=== PATIENT | female | born 1955 | race Caucasian/White ===

== ENCOUNTER 2020-10-09 12:27 | Emergency (ER) | payer OTHER ==
[~2020-10-09] VITALS: Ht 162.6 cm; Wt 104.3 kg
[2020-10-09 12:37] VITALS: BP 139/102
[2020-10-09 13:09] LABS: BASOPHILS % (AUTO) 0.8 % (0.0-5.0); EOSINOPHILS % (AUTO) 2.8 % (0.0-8.0); LYMPHOCYTES % (AUTO) 13.5 % (21.0-51.0); MEAN CORPUSCULAR HEMOGLOBIN 29.7 pg (27.0-33.0); MEAN CORPUSCULAR HGB CONC 32.1 g/dL (32.0-36.0); MEAN CORPUSCULAR VOLUME 92.7 fL (79-99); MONOCYTES % (AUTO) 7.8 % (3.0-13.0); NEUTROPHILS % (AUTO) 74.7 % (40.0-77.0); PLATELET COUNT (AUTO) 195 K/uL (130-400); RED BLOOD CELL COUNT(AUTO) 5.18 MIL/uL (4.00-5.50); RED CELL DISTRIBUTION WIDTH 13.5 % (11.0-15.5); WHITE BLOOD COUNT (AUTO) 8.5 K/uL (4.8-10.8)
[2020-10-09 13:17] LABS: CREATININE 1.3 mg/dL (0.5-1.5); POTASSIUM 4.1 mmol/L (3.5-5.1)
[2020-10-09 13:22] LABS: ALBUMIN 3.5 g/dL (3.5-5.0); BILIRUBIN,TOTAL 0.7 mg/dL (0.2-1.0); TOTAL PROTEIN, SERUM 7.6 g/dL (6.0-8.3)
[2020-10-09 13:29] LABS: B-TYPE NATRIURETIC PEPTIDE 175 pg/mL (0-100)
[2020-10-09 15:37] VITALS: BP 131/92
[2020-10-09] MEDS ORDERED: SUCRALFATE 1 GM TABLET PO SCH (15:45)
[2020-10-09] MEDS ORDERED: FAMOTIDINE/PF 20 MG/2 ML VIAL IV ONE ×2 (15:45→16:55)
[2020-10-09 16:00] VITALS: BP 146/60
[2020-10-09] MEDS ORDERED: METOPROLOL TARTRATE 1 MG/ML 5ML VIAL IV ONE (16:30)
[2020-10-09 17:10] VITALS: BP 152/71
[2020-10-09 18:25] VITALS: BP 126/68
== END 2020-10-09 15:15 | disposition left against medical advice (07) ==
LOC: EDH 12:27
DX: I48.91 Unspecified atrial fibrillation (principal); R10.13 Epigastric pain; R11.2 Nausea with vomiting, unspecified; I10 Essential (primary) hypertension; E66.9 Obesity, unspecified; Z79.899 Other long term (current) drug therapy; Z79.01 Long term (current) use of anticoagulants; Z88.0 Allergy status to penicillin; Z88.1 Allergy status to other antibiotic agents; Z87.19 Personal history of other diseases of the digestive system; Z88.8 Allergy status to other drugs, medicaments and biological substances
CPT/HCPCS: 36415; 71045; 80053; 82550; 83690; 83735; 83880; 84484 ×2; 85025; 93005 ×3; 96374; 96375; 99285; J3490 ×2

== ENCOUNTER → 2020-11-08 | Outpatient (CLI) | payer OTHER | END | disposition home or self-care (01) | LOC: RAH 10:52 | PROVIDERS: ATTEND Internal Medicine | DX: R31.9 Hematuria, unspecified (principal) | CPT/HCPCS: 76770 ==

== ENCOUNTER 2020-12-07 08:33 | Day surgery (SDC) | payer OTHER ==
[2020-12-02 12:08] LABS: BASOPHILS % (AUTO) 1.1 % (0.0-5.0); EOSINOPHILS % (AUTO) 2.5 % (0.0-8.0); HEMATOCRIT 43.4 % (36-48); LYMPHOCYTES % (AUTO) 14.2 % (21.0-51.0); MEAN CORPUSCULAR HEMOGLOBIN 29.8 pg (27.0-33.0); MEAN CORPUSCULAR HGB CONC 30.9 g/dL (32.0-36.0); MEAN CORPUSCULAR VOLUME 96.7 fL (79-99); MONOCYTES % (AUTO) 6.8 % (3.0-13.0); NEUTROPHILS % (AUTO) 75.1 % (40.0-77.0); PLATELET COUNT (AUTO) 168 K/uL (130-400); RED BLOOD CELL COUNT(AUTO) 4.49 MIL/uL (4.00-5.50); RED CELL DISTRIBUTION WIDTH 14.6 % (11.0-15.5); WHITE BLOOD COUNT (AUTO) 7.5 K/uL (4.8-10.8)
[2020-12-02 12:15] LABS: CREATININE 1.4 mg/dL (0.5-1.5); POTASSIUM 4.8 mmol/L (3.5-5.1)
[2020-12-02 12:18] LABS: INR 1.11 (0.85-1.15)
[2020-12-02 12:19] LABS: PARTIAL THROMBOPLASTIN TIME 31.4 SEC (26.3-35.5)
[2020-12-06 12:57] VITALS: BP 127/69
[~2020-12-07] VITALS: Ht 162.6 cm; Wt 108.7 kg
[2020-12-07] VITALS (11 sets, daily range): BP systolic 94–138; BP diastolic 47–82
[~2020-12-07 08:33] MED LIST: APIX5TAB PO; DRON400T7 PO; FURO40TA5 PO; METO-391 PO
[2020-12-07] MEDS ORDERED: 0.9%NACL 1000ML 1,000 ML IV ONE (09:29)
[2020-12-07] MEDS ORDERED: SUCCINYLCHOLINE 200MG/10ML SYR ONE (12:14)
[2020-12-07] MEDS ORDERED: PROPOFOL 10 MG/ML 20ML VIAL IV ONE (12:14)
== END 2020-12-07 13:30 | disposition home or self-care (01) ==
LOC: DAH 08:33
PROVIDERS: ATTEND Internal Medicine Cardiovascular Disease
DX: I48.19 Other persistent atrial fibrillation (principal); Z20.822 Contact with and (suspected) exposure to COVID-19; E66.01 Morbid (severe) obesity due to excess calories; E11.9 Type 2 diabetes mellitus without complications; G47.00 Insomnia, unspecified; Z79.82 Long term (current) use of aspirin; Z79.01 Long term (current) use of anticoagulants; Z79.899 Other long term (current) drug therapy; Z90.89 Acquired absence of other organs; Z82.49 Family history of ischemic heart disease and other diseases of the circulatory system; Z88.0 Allergy status to penicillin; Z88.8 Allergy status to other drugs, medicaments and biological substances; Z68.41 Body mass index [BMI] 40.0-44.9, adult; Z72.89 Other problems related to lifestyle
CPT/HCPCS: 36415; 80048; 85025; 85610; 85730; 87635; 92960; 93005 ×2; A4215; A4216; A4221; A4222; A4223 ×2; A4606; A4663; C9803; J0330; J2704; J7030

== ENCOUNTER 2021-08-30 05:41 | Day surgery (SDC) | payer OTHER ==
[2021-08-29 14:11] LABS: BASOPHILS % (AUTO) 0.8 % (0.0-5.0); HEMATOCRIT 46.1 % (36-48); LYMPHOCYTES % (AUTO) 15.8 % (21.0-51.0); MEAN CORPUSCULAR HEMOGLOBIN 28.6 pg (27.0-33.0); MEAN CORPUSCULAR HGB CONC 31.5 g/dL (32.0-36.0); MEAN CORPUSCULAR VOLUME 90.9 fL (79-99); MONOCYTES % (AUTO) 10.2 % (3.0-13.0); NEUTROPHILS % (AUTO) 70.7 % (40.0-77.0); PLATELET COUNT (AUTO) 147 K/uL (130-400); RED BLOOD CELL COUNT(AUTO) 5.07 MIL/uL (4.00-5.50); RED CELL DISTRIBUTION WIDTH 13.6 % (11.0-15.5); WHITE BLOOD COUNT (AUTO) 5.9 K/uL (4.8-10.8)
[2021-08-29 14:17] LABS: CREATININE 1.2 mg/dL (0.5-1.5); POTASSIUM 4.5 mmol/L (3.5-5.1)
[2021-08-29 14:28] VITALS: BP 165/74
[2021-08-29 14:34] LABS: INR 1.13 (0.85-1.15); PROTHROMBIN TIME 12.2 SEC (9.6-11.6)
[2021-08-29 14:36] LABS: PARTIAL THROMBOPLASTIN TIME 34.5 SEC (26.3-35.5)
[~2021-08-30] VITALS: Ht 162.6 cm; Wt 110.9 kg
[2021-08-30] VITALS (11 sets, daily range): BP systolic 100–168; BP diastolic 42–92
[~2021-08-30 05:41] MED LIST changes: +BUPR-93 PO; +DEXL60CA3 PO; +DILT180C89 PO; -METO-391 PO
[2021-08-30] MEDS ORDERED: 0.9% NACL 500ML IV.SOLN 500 ML IV SCH (06:00)
[2021-08-30] MEDS ORDERED: 0.9%NACL 1000ML 1,000 ML IV ONE (06:05)
[2021-08-30] MEDS ORDERED: PROPOFOL 10 MG/ML 20ML VIAL IV ONE (07:55)
== END 2021-08-30 09:03 | disposition home or self-care (01) ==
LOC: DAH 05:41
PROVIDERS: ATTEND Internal Medicine Cardiovascular Disease
DX: I48.19 Other persistent atrial fibrillation (principal); E66.01 Morbid (severe) obesity due to excess calories; E66.9 Obesity, unspecified; F32.A Depression, unspecified; Z79.899 Other long term (current) drug therapy; Z90.89 Acquired absence of other organs; Z82.49 Family history of ischemic heart disease and other diseases of the circulatory system; Z72.89 Other problems related to lifestyle; Z88.8 Allergy status to other drugs, medicaments and biological substances; Z88.0 Allergy status to penicillin; Z68.41 Body mass index [BMI] 40.0-44.9, adult; Z79.01 Long term (current) use of anticoagulants
CPT/HCPCS: 36415; 80048; 85025; 85610; 85730; 87635; 92960; 93005 ×2; A4215; A4216; A4221; A4222; A4223 ×3; A4606; A4663; A7002; C9803; J2704; J7030

== ENCOUNTER 2021-12-19 08:33 | Observation (INO) | payer OTHER ==
[~2021-12-19] VITALS: Ht 162.6 cm; Wt 113.9 kg
[2021-12-19] MEDS: APIXABAN 5 MG TABLET PO SCH ×2 (09:00→21:42)
[2021-12-19] MEDS ORDERED: SOTALOL HCL 80 MG TABLET PO SCH (09:00)
[2021-12-19 09:17] LABS: BASOPHILS % (AUTO) 1.2 % (0.0-5.0); HEMATOCRIT 44.6 % (36-48); LYMPHOCYTES % (AUTO) 21.4 % (21.0-51.0); MEAN CORPUSCULAR HEMOGLOBIN 28.7 pg (27.0-33.0); MEAN CORPUSCULAR HGB CONC 31.8 g/dL (32.0-36.0); MEAN CORPUSCULAR VOLUME 90.3 fL (79-99); MONOCYTES % (AUTO) 7.8 % (3.0-13.0); NEUTROPHILS % (AUTO) 64.4 % (40.0-77.0); PLATELET COUNT (AUTO) 145 K/uL (130-400); RED BLOOD CELL COUNT(AUTO) 4.94 MIL/uL (4.00-5.50); RED CELL DISTRIBUTION WIDTH 14.4 % (11.0-15.5); WHITE BLOOD COUNT (AUTO) 5.2 K/uL (4.8-10.8)
[2021-12-19 09:40] LABS: ALBUMIN 3.4 g/dL (3.5-5.0); CREATININE 1.4 mg/dL (0.5-1.5); MAGNESIUM 2.1 mg/dL (1.80-2.40); POTASSIUM 3.5 mmol/L (3.5-5.1); T4 (THYROXINE) 6.7 ug/dL (4.7-13.3); THYROID STIMULATING HORMONE 3.82 uIU/mL (0.36-3.74); TOTAL PROTEIN, SERUM 6.9 g/dL (6.0-8.3)
[2021-12-19] MEDS ORDERED: BUPR75TA8 PO (09:48)
[2021-12-19] MEDS ORDERED: DILT-36 PO (09:48)
[2021-12-19] MEDS ORDERED: [UNRECOGNIZED DRUG - CODE] PO (09:48)
[2021-12-19 10:00] VITALS: BP 162/58
[2021-12-19] MEDS: SOTALOL HCL 80 MG TABLET PO SCH ×2 (11:26→21:40)
[2021-12-19 11:42] VITALS: BP 164/94
[2021-12-19 14:18] VITALS: BP 125/65
[2021-12-19 16:07] VITALS: BP 124/59
[2021-12-19 20:52] VITALS: BP 124/57
[2021-12-19 23:44] VITALS: BP 118/68
[2021-12-20 04:20] VITALS: BP 121/53
[2021-12-20 06:44] VITALS: BP 124/75
[2021-12-20] MEDS: SOTALOL HCL 80 MG TABLET PO SCH (08:35)
[2021-12-20] MEDS: APIXABAN 5 MG TABLET PO SCH (08:36)
[2021-12-20 11:26] VITALS: BP 134/65
[2021-12-20] MEDS ORDERED: SOTA120T PO (14:09)
== END 2021-12-20 15:42 | disposition home or self-care (01) ==
LOC: EDH 08:33 → EDHIP 08:34 → 2BH 09:28 → 2AH 15:07
PROVIDERS: ADMIT Internal Medicine Cardiovascular Disease; ATTEND Internal Medicine Cardiovascular Disease
DX: I48.19 Other persistent atrial fibrillation (principal); Z79.899 Other long term (current) drug therapy
CPT/HCPCS: 84443; 84436; 83735; 80053; 85025; 36415; 93005; G0378 ×31; G0379

== ENCOUNTER → 2022-01-23 | Outpatient (CLI) | payer OTHER ==
[~2022-01-23] MED LIST changes: -BUPR-93 PO; +BUPR75TA8 PO; -DEXL60CA3 PO; -DILT180C89 PO; -DRON400T7 PO; -FURO40TA5 PO; +SOTA120T PO; +[UNRECOGNIZED DRUG - CODE] PO
== END | disposition home or self-care (01) ==
LOC: SHCH 14:03
PROVIDERS: ATTEND Internal Medicine Cardiovascular Disease
DX: I51.7 Cardiomegaly (principal); I48.0 Paroxysmal atrial fibrillation; E66.01 Morbid (severe) obesity due to excess calories; Z98.890 Other specified postprocedural states
CPT/HCPCS: 93306

== ENCOUNTER 2024-05-08 08:22 | Day surgery (SDC) | payer OTHER ==
[2024-05-02 10:32] VITALS: BP 146/80; PULSE 104; RESP 16; TEMP 97.5
[2024-05-02 10:37] LABS: BASOPHILS # (AUTO) 0.05 K/uL (0.00-0.20); BASOPHILS % (AUTO) 0.8 % (0.0-5.0); EOSINOPHILS # (AUTO) 0.17 K/uL (0.00-0.70); EOSINOPHILS % (AUTO) 2.7 % (0.0-8.0); HEMATOCRIT 48.2 % (36-48); IMMATURE GRANULOCYTE ABSOLUTE 0.01 K/uL (0-1); LYMPHOCYTES % (AUTO) 16.3 % (21.0-51.0); MEAN CORPUSCULAR HEMOGLOBIN 29.2 pg (27.0-33.0); MEAN CORPUSCULAR VOLUME 91.3 fL (79-99); MONOCYTES # (AUTO) 0.5 K/uL (0.1-1.0); MONOCYTES % (AUTO) 8.4 % (3.0-13.0); NEUTROPHILS # (AUTO) 4.4 K/uL (1.8-7.7); NEUTROPHILS % (AUTO) 71.6 % (40.0-77.0); PLATELET COUNT (AUTO) 174 K/uL (130-400); RED BLOOD CELL COUNT(AUTO) 5.28 MIL/uL (4.00-5.50); RED CELL DISTRIBUTION WIDTH 14.9 % (11.0-15.5); WHITE BLOOD COUNT (AUTO) 6.2 K/uL (4.8-10.8)
--- NOTE | 2024-05-02 10:37 | EKG ---
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 : 1955 Requested By: ROSANNA SANCHEZ Order Number: [id number] Reading MD: Leonel Harrsi Measurements Intervals [place] Rate: 92 P: 0 CO: 0 QRS: 0 QRSD: 79 T: 0 QT: 362 QTc: 447 Interpretive Statements Atrial fibrillation Indeterminate axis Consider anterior infarct Nonspecific T abnormalities, inferior leads Compared to ECG 12/20/2021 13:41:54 Indeterminate axis now present Myocardial infarct finding now present T-wave abnormality now present Sinus bradycardia no longer present Electronically Signed On 05-02-2024 12:25:34 [employer] TE[employer]ERS by Leonel Harris Please click the below link to view image of tracing.
[2024-05-02 10:48] LABS: INR 1.06 (0.85-1.15); PROTHROMBIN TIME 11.8 SEC (9.6-11.6)
[2024-05-02 10:50] LABS: PARTIAL THROMBOPLASTIN TIME 33.4 SEC (26.3-35.5)
[2024-05-02 10:59] LABS: CREATININE 1.3 mg/dL (0.5-1.0); POTASSIUM 4.5 mmol/L (3.5-5.1)
[2024-05-08] VITALS (19 sets, daily range): BP systolic 102–139; BP diastolic 41–86; PULSE 61–96; RESP 13–20; TEMP 97–97.8
[~2024-05-08] VITALS: Ht 162.6 cm; Wt 117.3 kg
[~2024-05-08 08:22] MED LIST changes: -BUPR75TA8 PO; +DILT240C81 PO; +METO25 PO; +SEMA1PEN3 SQ; -SOTA120T PO; -[UNRECOGNIZED DRUG - CODE] PO
[2024-05-08] MEDS: 0.9%NACL 1000ML 1,000 ML IV ONE (09:41)
[2024-05-08] MEDS: 0.9%NACL 1000ML 1,000 ML IV SCH (09:42)
[2024-05-08] MEDS ORDERED: SUCCINYLCHOLINE CHLORIDE 20 MG/ML 10 ML VIAL ONE (11:16)
[2024-05-08] MEDS ORDERED: LIDOCAINE PF 100MG/5ML (2%) SYRINGE 5ML ONE (11:16)
[2024-05-08] MEDS ORDERED: MIDAZOLAM HCL 1 MG/ML 2ML VIAL ONE (11:17)
[2024-05-08] MEDS ORDERED: proPOFol 10 MG/ML 20ML VIAL IV ONE (11:17)
[2024-05-08] MEDS ORDERED: rocuRONium bROMide 10MG/1ML 5ML VL ONE (11:17)
[2024-05-08] MEDS ORDERED: ketaMINE 50MG/ML SYRINGE 50 MG/ML DISP.SYRIN ONE (11:17)
[2024-05-08] MEDS ORDERED: GLYCOPYRROLATE 0.2 MG/ML 5 ML VIAL ONE (11:18)
[2024-05-08] MEDS ORDERED: phenylEPHRINE HCL 10 MG/ML 1ML VIAL IV ONE ×2 (11:19→14:25)
[2024-05-08] MEDS ORDERED: NEOSTIGMINE METHYLSULFATE 1MG/ML IV ONE (11:19)
[2024-05-08] MEDS ORDERED: LIDOCAINE HCL 1% MDV 50ML VIAL ONE (11:28)
[2024-05-08] MEDS ORDERED: HEParin 10,000 UNIT/10ML (1,000 UNIT/ML) VIAL ONE ×2 (11:28→12:42)
[2024-05-08] MEDS ORDERED: PANTOPrazole 40 MG TAB DR PO SCH (15:30)
[2024-05-08] MEDS ORDERED: SUCRALFATE 1 GM/10 ML PO SCH (15:30)
[2024-05-08] MEDS: ondanSETRON 4MG INJ ONE (15:36)
[2024-05-08] MEDS ORDERED: DRON400T7 PO ×2 (15:38)
[2024-05-08] MEDS ORDERED: DRONEDARONE HYDROCHLORIDE 400 MG TABLET PO SCH (16:30)
--- NOTE | 2024-05-08 18:15 | NUR ---
Son to bedside for D/C instructions, pt/son verbalize understanding. Rt groin stable, nontender, dressing changes explained, 2 sutures remain, supplies given. script transmitted for Multaq, son confirms fillled at [facility]. Pt sitting up on bedside, groin & VSS, denies c/o or necessity. Pednign PIV removal s/p ambulation to restroom. Assist dress. Plan D/C via W/C into son's car & car.
[2024-05-09] MEDS ORDERED: DRON400T7 PO ×2 (05:22)
[2024-05-09] MEDS ORDERED: METO25TA6 PO ×2 (05:22)
[2024-05-09] MEDS ORDERED: DILT-118 PO ×2 (05:22)
--- NOTE | 2024-05-09 06:21 | EKG ---
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 : 1955 Requested By: ROSANNA SANCHEZ Order Number: [id number] Reading MD: Gene Lindo Measurements Intervals [place] Rate: 72 P: 64 ND: 160 QRS: 10 QRSD: 74 T: 39 QT: 419 QTc: 454 Interpretive Statements Sinus rhythm Multiple premature complexes, vent & supraven Nonspecific STT abnormality Compared to ECG 05/02/2024 11:17:37 Atrial fibrillation no longer present Indeterminate axis no longer present Myocardial infarct finding no longer present T-wave abnormality no longer present Electronically Signed On 05-12-2024 21:17:47 RN ACUTE by Gene Lindo Please click the below link to view image of tracing.
[2024-05-10] MEDS ORDERED: COLC0.6C3 PO ×2 (14:23)
[2024-05-10] MEDS ORDERED: SUCR1TAB28 PO (14:24)
[2024-05-10] MEDS ORDERED: PANT40TA55 PO (14:24)
[2024-05-24] MEDS ORDERED: CEPH500B PO ×2 (15:33)
== END 2024-05-08 18:48 | disposition home or self-care (01) ==
LOC: DAH 08:22
PROVIDERS: ATTEND Internal Medicine Cardiovascular Disease
DX: I48.19 Other persistent atrial fibrillation (principal); I11.0 Hypertensive heart disease with heart failure; I50.30 Unspecified diastolic (congestive) heart failure; F41.9 Anxiety disorder, unspecified; E66.01 Morbid (severe) obesity due to excess calories; I25.2 Old myocardial infarction; F32.A Depression, unspecified; Z88.0 Allergy status to penicillin; Z88.1 Allergy status to other antibiotic agents; Z88.8 Allergy status to other drugs, medicaments and biological substances; Z68.41 Body mass index [BMI] 40.0-44.9, adult; Z90.89 Acquired absence of other organs; Z79.899 Other long term (current) drug therapy
CPT/HCPCS: 80048; 85025; 85610; 85730; 36415; 93005 ×2; 93656; 85347 ×4; 82948; C1894 ×5; C1732 ×3; A4649 ×2; C1760 ×3; C1766; J0330; J7030; J3490 ×4; J2003; J1644 ×3; J2250; J2704; J2405; J2710; J2371 ×2; A4215; A4222; A4221; A4663; A4216; A4606; A4223 ×3

== ENCOUNTER 2024-05-20 15:02 | Observation (INO) | payer OTHER ==
[~2024-05-20] VITALS: Ht 162.6 cm; Wt 114.4 kg
[~2024-05-20 15:02] MED LIST changes: +COLC0.6C3 PO; +DILT-118 PO; +DRON400T7 PO; +METO25TA6 PO; +PANT40TA55 PO; +SUCR1TAB28 PO
[2024-05-20] MEDS ORDERED: acetaMINOPHEN 500 MG TABLET PO PRN (16:00)
[2024-05-20] MEDS ORDERED: ondanSETRON 4MG INJ IVP PRN (16:00)
[2024-05-20] MEDS: IpraTROPium 0.5 MG/2.5 ML INH IH PRN (16:00)
[2024-05-20] MEDS ORDERED: guaiFENesin-DM 200/20MG 10ML PO PRN (16:00)
[2024-05-20] MEDS ORDERED: PoTASSium chloRIDE 20MEQ/100ML 100 ML IV PRN (16:00)
[2024-05-20] MEDS ORDERED: PoTASSium chl 10% ELIXIR 20MEQ 20 MEQ/15 ML UDCUP PO PRN (16:00)
[2024-05-20 16:01] VITALS: PULSE 125; RESP 21
[2024-05-20 16:03] VITALS: PULSE 125; RESP 21; O2SAT 92
[2024-05-20 16:23] LABS: BASOPHILS # (AUTO) 0.04 K/uL (0.00-0.20); BASOPHILS % (AUTO) 0.6 % (0.0-5.0); EOSINOPHILS # (AUTO) 0.12 K/uL (0.00-0.70); EOSINOPHILS % (AUTO) 1.9 % (0.0-8.0); HEMATOCRIT 43.2 % (36-48); IMMATURE GRANULOCYTE ABSOLUTE 0.06 K/uL (0-1); LYMPHOCYTES % (AUTO) 16.2 % (21.0-51.0); MEAN CORPUSCULAR HEMOGLOBIN 28.8 pg (27.0-33.0); MEAN CORPUSCULAR HGB CONC 31.3 g/dL (32.0-36.0); MEAN CORPUSCULAR VOLUME 92.3 fL (79-99); MONOCYTES # (AUTO) 0.4 K/uL (0.1-1.0); NEUTROPHILS # (AUTO) 4.6 K/uL (1.8-7.7); NEUTROPHILS % (AUTO) 73.3 % (40.0-77.0); PLATELET COUNT (AUTO) 244 K/uL (130-400); RED BLOOD CELL COUNT(AUTO) 4.68 MIL/uL (4.00-5.50); RED CELL DISTRIBUTION WIDTH 15.7 % (11.0-15.5); WHITE BLOOD COUNT (AUTO) 6.3 K/uL (4.8-10.8)
--- NOTE | 2024-05-20 16:32 | HMCIMG ---
CHEST 1VW HISTORY: Shortness of breath COMPARISON: 05/09/2024 FINDINGS: A frontal projection of the chest was obtained. Prominent interstitial markings are seen with possible superimposed infiltrates. The heart is normal in size. Degenerative changes are seen. No evidence of aortic calcification is seen. IMPRESSION: 1. Prominent interstitial markings are seen with possible superimposed infiltrates.
[2024-05-20 16:34] LABS: CREATININE 1.3 mg/dL (0.5-1.0); POTASSIUM 3.9 mmol/L (3.5-5.1)
[2024-05-20 16:40] LABS: ALBUMIN 2.8 g/dL (3.5-5.0); BILIRUBIN,DIRECT 0.2 mg/dL (0.0-0.3); BILIRUBIN,TOTAL 0.8 mg/dL (0.2-1.0); MAGNESIUM 1.9 mg/dL (1.80-2.40); TOTAL PROTEIN, SERUM 6.5 g/dL (6.0-8.3)
[2024-05-20 16:52] LABS: INR 1.25 (0.85-1.15); PROTHROMBIN TIME 13.7 SEC (9.6-11.6)
[2024-05-20 16:53] LABS: PARTIAL THROMBOPLASTIN TIME 30.4 SEC (26.3-35.5)
[2024-05-20] MEDS ORDERED: IOHEXOL-350 75 ML VIAL IV ONE (17:07)
[2024-05-20] MEDS: SUCRALFATE 1 GM/10 ML PO SCH (17:37)
[2024-05-20 17:49] LABS: ERYTHROCYTE SEDIMENTATION RATE 28 MM/HR (0-30)
--- NOTE | 2024-05-20 18:02 | NUR ---
VERBAL ORDER PROVIDED BY Laith MEDINA MD TO ADMINISTER PO POTASSIUM AND 2G MAGNESIUM.
--- NOTE | 2024-05-20 18:16 | HMCIMG ---
CT ANGIOGRAM OF THE CHEST WITHOUT AND WITH CONTRAST. CT RECONSTRUCTIONS INDICATION: Persistent atrial fibrillation, acute diastolic heart failure. TECHNIQUE: Routine axial images using 3 mm slice thickness were acquired from the lung apices to the bases before and after the intravenous administration of 100 mL of Omnipaque 350 contrast material using the pulmonary embolism protocol. Maximum Intensity Projection imaging in the sagittal and coronal planes were also provided. CT was performed with one or more of the following dose reduction techniques: Automated exposure control, adjustment of the mA and/or kV according to patient size, or use of iterative reconstruction technique. COMPARISON: None FINDINGS: The contrast bolus is of good quality for diagnosis of pulmonary embolism. The heart size is within normal limits without pericardial effusion. Reflux of contrast material into the hepatic veins. The main pulmonary arteries, segmental branches, and visualized subsegmental pulmonary arteries appear normal without intraluminal filling defects. Pulmonary trunk is not enlarged. No evidence for thoracic aortic aneurysm or dissection. The origins of the great vessels and thoracic aorta appear normal. Trachea appears normal. Generalized mild peribronchial thickening. No pleural effusion, pneumothorax, abnormal opacity or consolidation, pulmonary nodule, or mass identified. No axillary, hilar, or mediastinal lymphadenopathy detected. Small simple splenic cyst. Visible osseous structures are intact. IMPRESSION: Findings suggesting an element of right heart failure, without evidence for pulmonary embolism, pericardial effusion, cardiomegaly, or pulmonary vascular congestion at this juncture. Mild reactive airway disease without pneumonia.
[2024-05-20] MEDS: PoTASSium chloRIDE 20MEQ ER 20 MEQ ERTAB PO PRN (18:18)
[2024-05-20 18:20] LABS: B-TYPE NATRIURETIC PEPTIDE 268 pg/mL (0-100)
[2024-05-20] MEDS: MAGNESIUM 2GM PREMIX 50ML 50 ML IV SCH (18:20)
[2024-05-20 18:25] LABS: SARS-CoV-2, RNA, NAAT NEGATIVE SARS CoV-2 (NEGATIVE)
[2024-05-20 18:27] LABS: INFLUENZA TYPE A Negative For Type A (NEGATIVE); INFLUENZA TYPE B Negative For Type B (NEGATIVE)
--- NOTE | 2024-05-20 18:52 | HP ---
[facility] PH[facility] Date of Service: May 20, 2024 Time of Service: 18:52 HISTORY OF PRESENT ILLNESS: Date of service: 05/20/2024, patient was seen in ER room four 69-year-old female with history of persistent atrial fibrillation, chronic diastolic heart failure, hypertension, obesity, history of anxiety and depression who recently underwent pulmonary vein isolation with ablation on 05/08/2024. Postprocedurally, next day, patient presented to the ER with chest pain with radiation to the jaw. She was on further workup, found to have myopericarditis with elevated troponin. She was seen by Cardiology and was subsequently discharged on 05/10/2024 with outpatient therapy with colchicine for management of pericarditis. Patient was also discharged on Multaq 400 mg twice a day, metoprolol tartrate 25 mg b.i.d., and Cardizem 240 mg daily. Patient states that post discharge over the last several days, she has been having palpitations and has noticed that atrial fibrillation has recurred. She has noticed increased swelling of the lower extremity and has been having productive cough with dyspnea on exertion. She denies any active chest pain or chest pressure. Denies any fevers, chills or pleurisy. Patient reports that she is compliant with outpatient Eliquis and she is also t aking Protonix and Carafate. Reports that she has not taken Multaq today because it was causing persistent symptoms of diarrhea and she discussed this with nurse practitioner today on follow up with Dr. Sanchez. Denies any previous history of pulmonary comorbidities or any history of sleep apnea. She has noticed that heart rate at home has been trending in the 100s to 130s over the last several days. Reports previously having multiple cardioversions previously. On presentation to the hospital, patient was noted to be afebrile with T-max of 98.4 F, heart rate of 106 and blood pressure of 139/76 with oxygen saturation of 99%. Labs on presentation showed WBC count of 6300, hemoglobin of 13.5, platelet count of 117468 with no associated neutrophilia. BMP remarkable for sodium of 144, potassium 3.9, BUN of 12, creatinine of 1.3, CRP of 14, BUN of 268, procalcitonin was noted to be negative at 0.05. Patient will be admitted for further management of persistent atrial fibrillation with RVR with plans for cardioversion tomorrow morning. Patient will also undergo CT chest PE protocol to rule out PE, we will also make sure patient is not developing a community-acquired pneumonia. Respiratory cultures will be obtained. REVIEW OF SYSTEMS CONSTITUTIONAL: Denies fevers, chills, or night sweats. No unintentional weight loss reported. NEUROLOGICAL: Denies headache, amaurosis fugax, motor weakness, sensory deficit, vertigo/spinning sensation, gait abnormalities, or tremors. ENT: No hearing loss, otalgia, otorrhea, rhinitis, rhinorrhea, hoarseness, or sore throat. CARDIOVASCULAR: Patient reports having significant palpitations PULMONARY: Shortness of breath, cough, dyspnea on exertion SLEEP: Denies morning headaches, daytime somnolence or napping. Denies difficulty falling asleep, staying asleep, waking from sleep. Denies knowledge of snoring. GASTROINTESTINAL: Denies any type of dysphagia to either liquids or solids. Denies nausea, vomiting, pyrosis, early satiety, abdominal pain, diarrhea, con stipation, or changes in stool consistency or caliber. Denies coffee-ground emesis, hematemesis, hematochezia, or melanotic stools. GENITOURINARY: Denies frequency, urgency, nocturia, hematuria or incontinence (Storage/Irritative symptoms.) Low urinary stream, straining to void, urinary intermittency or hesitancy, splitting of the voiding stream, terminal dribbling. ENDOCRINOLOGIC: Denies polyuria, polydipsia, polyphagia or heat/cold intolerances. HEMATOLOGIC: Denies thrombophilia/previous clots, or coagulopathy/bleeding disorders. ONCOLOGIC: Denies personal history of malignancy. DERMATOLOGIC: Denies rashes or pruritus. PSYCHIATRIC: Denies any suicidal or homicidal ideation. Denies hallucinations. PAST MEDICAL HISTORY: Persistent atrial fibrillation, history of intolerance to amiodarone, history of chronic anticoagulation with Eliquis, obesity, anxiety, patient was recently [place] [facility] [place] and was found to have myopericarditis and was discharged on outpatient course with colchicine which she was not compliant with due to side effects from colchicine PAST SURGICAL HISTORY: Reports having had about five cardioversions previously for management of for atrial fibrillation, patient recently underwent PVI with cardiac ablation on 05/08/2024, history of tonsillectomy PAST SOCIAL HISTORY: Currently denies any active smoking or alcohol consumption FAMILY HISTORY: Denies pertinent family history Allergies: Penicillin, amiodarone, clarithromycin, erythromycin, lisinopril, propranolol Home medications: Furosemide 40 mg p.r.n. for management of edema, Eliquis 5 mg b.i.d., metoprolol tartrate 25 mg twice a day, Cardizem ER 240 mg daily, Protonix 40 mg daily, Carafate 1 g q.i.d., apixaban 5 mg b.i.d. Coded Allergies: Penicillins (Unverified Allergy, Unknown, 10/09/20) amiodarone (Unverified Allergy, Unknown, 10/09/20) clarithromycin (Unverified Allergy, Unknown, 10/09/20) erythromycin base (Unverified Allergy, Unknown, 10/09/20) lisinopril (Unverified Allergy, Unknown, 10/09/20) propranolol (Unverified Allergy, Unknown, 12/06/20) PHYSICAL EXAM GENERAL APPEARANCE: The patient is awake, alert, and oriented, in no acute cardiopulmonary distress. NEUROLOGICAL: Cranial nerves II-XII grossly intact. Motor is 5/5 in bilateral upper and lower extremities proximal to distal. No sensory deficits. HEENT: Face is symmetric. Pupils are equal and reactive. Extraocular movements are intact. NECK: Supple. No JVD. No thyromegaly. No submental, submandibular, pre- /postauricular, occipital or supraclavicular lymphadenopathy. CHEST: Normal chest expansion. No Telemetry. LUNGS: Minimal crackles noted at bilateral lung bases CARDIOVASCULAR: Irregular, tachycardic. S1 and S2 normal. No appreciable rubs, murmurs or gallops. ABDOMEN: Soft, nontender, and nondistended. There is no rebound, voluntary guarding, or rigidity. : Deferred. No Wells. EXTREMITIES: 2+ pitting edema noted of bilateral lower extremities SKIN: No skin breakdown. Vital Sign (Last 24 Hours) 05/20/24 05/20/24 16:00 16:03 Temp 97.0 Pulse 125 Resp 21 B/P (MAP) 100/82 Pulse Ox 98 O2 Delivery N/A Room Air O2 Flow Rate 0 FiO2 21 LABS: Laboratory: Test 05/20/24 17:55 05/20/24 16:07 Range/Units Influenza Type A Antigen Negative For Type A NEGATIVE Influenza Type B Antigen Negative For Type B NEGATIVE SARS-CoV-2, RNA, NAAT NEGATIVE SARS CoV-2 NEGATIVE White Blood Count 6.3 4.8-10.8 K/uL Red Blood Count 4.68 4.00-5.50 MIL/uL Hemoglobin 13.5 12.0-16.0 g/dL Hematocrit 43.2 36-48 % Mean Corpuscular Volume 92.3 79-99 fL Mean Corpuscular Hemoglobin 28.8 27.0-33.0 pg Mean Corpuscular Hemoglobin Concent 31.3 L 32.0-36.0 g/dL Red Cell Distribution Width 15.7 H 11.0-15.5 % Platelet Count 244 130-400 K/uL Mean Platelet Volume 12.3 H 7.5-10.5 fL Immature Granulocyte % (Auto) 1.0 0-1 % Neutrophils (%) (Auto) 73.3 40.0-77.0 % Lymphocytes (%) (Auto) 16.2 L 21.0-51.0 % Monocytes (%) (Auto) 7.0 3.0-13.0 % Eosinophils (%) (Auto) 1.9 0.0-8.0 % Basophils (%) (Auto) 0.6 0.0-5.0 % Neutrophils # (Auto) 4.6 1.8-7.7 K/uL Lymphocytes # (Auto) 1.0 1.0-4.8 K/uL Monocytes # (Auto) 0.4 0.1-1.0 K/uL Eosinophils # (Auto) 0.12 0.00-0.70 K/uL Basophils # (Auto) 0.04 0.00-0.20 K/uL Absolute Immature Granulocyte (auto 0.06 0-1 K/uL Nucleated Red Blood Cells 0.0 0.0-0.19 % Erythrocyte Sedimentation Rate 28 0-30 MM/HR Prothrombin Time 13.7 H 9.6-11.6 SEC Prothromb Time International Ratio 1.25 H 0.85-1.15 Activated Partial Thromboplast Time 30.4 26.3-35.5 SEC Sodium Level 144 136-145 mmol/L Potassium Level 3.9 3.5-5.1 mmol/L Chloride Level 103 101-111 mmol/L Carbon Dioxide Level 38 H 21-32 mmol/L Blood Urea Nitrogen 12 7-18 mg/dL Creatinine 1.3 H 0.5-1.0 mg/dL Glomerular Filtration Rate Calc 45 >90 mL/min Random Glucose 105 70-105 mg/dL Total Calcium 8.7 8.5-10.1 mg/dL Magnesium Level 1.90 1.80-2.40 mg/dL Total Bilirubin 0.8 0.2-1.0 mg/dL Direct Bilirubin 0.2 0.0-0.3 mg/dL Aspartate Amino Transf (AST/SGOT) 25 10-37 U/L Alanine Aminotransferase (ALT/SGPT) 21 12-78 U/L Alkaline Phosphatase 53 50-136 U/L C-Reactive Protein, Quantitative 14.60 H 0.5-3.0 mg/L B-Type Natriuretic Peptide 268 H 0-100 pg/mL Total Protein 6.5 6.0-8.3 g/dL Albumin 2.8 L 3.5-5.0 g/dL Procalcitonin < 0.05 L 0.05-0.5 ng/mL Current Medications Medications (Trade) Dose Ordered Sig/Tori Route PRN Reason Start Time Stop Time Status Last Admin Dose Admin Acetaminophen (TYLenol 500MG TAB) 500 mg Q6H PRN PO MILD PAIN (1-3) 05/20/24 16:00 06/19/24 15:59 Apixaban (EliquIS) 5 mg BID PO 05/20/24 21:00 06/19/24 20:59 Budesonide (Pulmicort 0.5 Mg/2ml) 0.5 mg BIDRESP IH 05/20/24 18:00 06/19/24 17:59 Diltiazem HCl (CARDIzem 120MG CD) 240 mg DAILY PO 05/21/24 09:00 06/20/24 08:59 Furosemide (LASix 20MG VIAL) 20 mg Q12H IV 05/20/24 20:00 06/19/24 19:59 Guaifenesin/ Dextromethorphan (RobiTUSSin DM 200/20MG 10ML) 10 ml Q6H PRN PO COUGH 05/20/24 16:00 06/19/24 15:59 Ipratropium [place] (AtrovENT UD) 0.5 mg Q6H PRN IH SHORTNESS OF BREATH 05/20/24 16:00 06/19/24 15:59 05/20/24 16:00 0.5 MG Magnesium Sulfate 50 ml @ 0 mls/hr PROTOCOL IV 05/20/24 16:00 06/19/24 15:59 05/20/24 18:20 25 MLS/HR Metoprolol Tartrate (loprESSOR) 25 mg BID PO 05/20/24 21:00 06/19/24 20:59 Ondansetron HCl (zoFRAN 4MG INJ) 4 mg Q6H PRN IVP NAUSEA/VOMITING 05/20/24 16:00 06/19/24 15:59 Pantoprazole Sodium (PROTonix 40MG TAB) 40 mg DAILY PO 05/21/24 09:00 06/20/24 08:59 Potassium Chloride 100 ml @ 100 mls/hr AD PRN IV POTASSIUM PROTOCOL 05/20/24 16:00 06/19/24 15:59 Potassium Chloride (K-Dur/Klor-Con 20meq) 20 meq AD PRN PO POTASSIUM PROTOCOL 05/20/24 16:00 06/19/24 15:59 05/20/24 18:18 20 MEQ Potassium Chloride (KCl 10% Elixir 20meq/15ml) 20 meq AD PRN PO POTASSIUM PROTOCOL 05/20/24 16:00 06/19/24 15:59 Sucralfate (Carafate) 1 gm QID PO 05/20/24 17:00 06/19/24 16:59 05/20/24 17:37 1 GM DIAGNOSTICS / RADIOLOGY: SERVICE 1524 REASON: PERSISTENT ATRIAL FIBRILATION ACUTE DIASTOLIC HEART FAILURE ORDERING PHYSICIAN: ROSANNA SANCHEZ MD PROCEDURE: [facility] PE - CT CHEST PE PROTOCOL WWO CONT CT ANGIOGRAM OF THE CHEST WITHOUT AND WITH CONTRAST. CT RECONSTRUCTIONS INDICATION: Persistent atrial fibrillation, acute diastolic heart failure. TECHNIQUE: Routine axial images using 3 mm slice thickness were acquired from the lung apices to the bases before and after the intravenous administration of 100 mL of Omnipaque 350 contrast material using the pulmonary embolism protocol. Maximum Intensity Projection imaging in the sagittal and coronal planes were also provided. CT was performed with one or more of the following dose reduction techniques: Automated exposure control, adjustment of the mA and/or kV according to patient size, or use of iterative reconstruction technique. COMPARISON: None FINDINGS: The contrast bolus is of good quality for diagnosis of pulmonary embolism. The heart size is within normal limits without pericardial effusion. Reflux of contrast material into the hepatic veins. The main pulmonary arteries, segmental branches, and visualized subsegmental pulmonary arteries appear normal without intraluminal filling defects. Pulmonary trunk is not enlarged. No evidence for thoracic aortic aneurysm or dissection. The origins of the great vessels and thoracic aorta appear normal. Trachea appears normal. Generalized mild peribronchial thickening. No pleural effusion, pneumothorax, abnormal opacity or consolidation, pulmonary nodule, or mass identified. No axillary, hilar, or mediastinal lymphadenopathy detected. Small simple splenic cyst. Visible osseous structures are intact. IMPRESSION: Findings suggesting an element of right heart failure, without evidence for pulmonary embolism, pericardial effusion, cardiomegaly, or pulmonary vascular congestion at this juncture. Mild reactive airway disease without pneumonia. DICTATED BY: JOSE CAPPS MD DATE: 05/20/241810 ELECTRONICALLY SIGNED BY: JOSE CAPPS MD DATE: 05/20/241815 ASSESSMENT: Persistent atrial fibrillation with RVR, POA Acute diastolic heart failure exacerbation, POA Recent history of myopericarditis, 05/10/2024, POA Recent history of AFib ablation on 05/08/2024, POA CKD stage 3, POA History of multiple cardioversions previously for atrial fibrillation, POA Obesity, POA History of anxiety, POA History of chronic anticoagulation with Eliquis, POA Acute bronchitis, POA History of penicillin, amiodarone, clarithromycin, erythromycin allergy, POA History of lisinopril, propranolol allergy, POA Prolonged QTC, POA PLAN: Patient will be admitted to cardiac telemetry floor Patient is volume overloaded likely from atrial fibrillation with RVR for several days, CT chest PE protocol showed no evidence of PE or pneumonia, BNP is noted to be elevated as well We will start patient on gentle diuresis with IV Lasix 20 mg b.i.d. Maintain K greater than four and magnesium greater than two Continue with management of atrial fibrillation with medications including diltiazem ER 240 mg daily, and metoprolol tartrate 25 mg b.i.d., patient states that she does not want to take Multaq due to issues with significant diarrhea which she discussed with nurse practitioner for today, will discuss with cardiology We will obtain respiratory culture to rule out any bacterial bronchitis, patient is afebrile with no white count and procalcitonin is negative and CRP is minimally elevated, patient has multiple antibiotic allergy and is on outpatient Multaq with prolonged QTC which precludes use of fluoroquinolones/azithromycin, we will consider antibiotic therapy if needed based on final respiratory culture report We will start patient on Pulmicort twice daily and Atrovent q.6 hours to assist with airway clearance All labs will be repeated in the morning including CBC, CMP, magnesium Patient will be kept NPO pMN for cardioversion in am Date of service: 05/20/2024 Plan of care was discussed with patient at bedside, Heriberto Reza MD Advanced Care Planning: Which of the following were discussed: Hospice care: Yes __ No _x_ Therapeutic options: Yes _x_ No __ Advance directives: Yes _x_ No __ Other discussions: Discussed with who?: Patient Voluntary nature of this service was explained to the patient? Yes _x_ No __ Amount of time spent: 20 minutes HERIBERTO REZA MD May 20, 2024 18:52
--- NOTE | 2024-05-20 19:20 | NUR ---
PT ORIENTED TO ROOM, CALL LIGHT WITHIN REACH. PT DENIES CHEST PAIN OR SOB OR N/V/D AT THIS TIME
[2024-05-20] MEDS: BUDESONIDE 0.5 MG/2 ML INH IH SCH (19:32)
[2024-05-20 19:34] VITALS: PULSE 102; RESP 21
[2024-05-20 19:35] VITALS: PULSE 102; RESP 21; O2SAT 95
--- NOTE | 2024-05-20 19:43 | NUR ---
RT BALJIT COMPLETED TREATMENT
[2024-05-20] MEDS: furoSEMIDE 20MG VIAL IV SCH (21:08)
[2024-05-20] MEDS: metoPROLOL tartRATE 25 MG TAB PO SCH (21:10)
[2024-05-20] MEDS: APIXaban 5 MG TABLET PO SCH (21:10)
--- NOTE | 2024-05-20 21:12 | NUR ---
CALL LIGHT WITHIN REACH, PT REORIENTED TO ROOM
--- NOTE | 2024-05-20 21:16 | NUR ---
BEDSIDE TOILET PLACED AT BEDSIDE DUE TO LASIX, CLEAR PATH WAY
--- NOTE | 2024-05-20 21:35 | NUR ---
PT SITTING UP IN BED WATCHING TV, VOICING NO COMPLAINTS AT THIS TIME. DENIES CHEST PAIN OR SOB, DENIES PALPITATIONS
--- NOTE | 2024-05-20 21:39 | NUR ---
ROOM 226 GIVEN, NURSE WILL BE RUPINDER AT [phone]. WILL CALL WHEN ROOM IS CLEAN
--- NOTE | 2024-05-20 21:43 | NUR ---
PER RUPINDER, NURSE WILL BE MONCHO. ROOM IS NOT YET CLEAN. STATES WILL CALL WHEN CLEAN TO [phone]. FELA CASTILLO SUP MADE AWARE
--- NOTE | 2024-05-20 22:23 | NUR ---
PT LIVES ALONE, MEDICATIONS AT HOME
[2024-05-20 22:30] VITALS: O2SAT 94
[2024-05-20] MEDS: SODIUM CHLORIDE 3% FOR INHALATION 4 ML/AMP VIAL.NEB IH ONE (23:07)
[2024-05-20 23:21] VITALS: BP 113/68; PULSE 113; RESP 22; TEMP 98.5
[2024-05-21] VITALS (10 sets, daily range): BP systolic 93–138; BP diastolic 43–91; PULSE 68–130; RESP 20–22; TEMP 97.7–98.6; O2SAT 92–94
--- NOTE | 2024-05-21 06:35 | NUR ---
Informed Dr. Mcdaniels of Afib 120s-130s with nausea and "upset stomach" stated by pt. Ordered Metoprolol tartrate 5mg IVP once. Repeated back order.
[2024-05-21] MEDS: metoPROLOL tartRATE 1 MG/ML 5ML VIAL IV ONE (06:40)
--- NOTE | 2024-05-21 07:08 | EKG ---
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
[2024-05-21] MEDS: dilTIAZem 120MG SR CAP PO SCH (08:16)
[2024-05-21] MEDS: DRONEDARONE HYDROCHLORIDE 400 MG TABLET PO SCH (08:16)
[2024-05-21] MEDS: PANTOPrazole 40 MG TAB DR PO SCH (08:17)
[2024-05-21 09:20] LABS: BASOPHILS # (AUTO) 0.05 K/uL (0.00-0.20); BASOPHILS % (AUTO) 0.9 % (0.0-5.0); EOSINOPHILS # (AUTO) 0.12 K/uL (0.00-0.70); EOSINOPHILS % (AUTO) 2.1 % (0.0-8.0); HEMATOCRIT 44.3 % (36-48); IMMATURE GRANULOCYTE ABSOLUTE 0.04 K/uL (0-1); LYMPHOCYTES # (AUTO) 0.7 K/uL (1.0-4.8); LYMPHOCYTES % (AUTO) 12.3 % (21.0-51.0); MEAN CORPUSCULAR HEMOGLOBIN 29.1 pg (27.0-33.0); MEAN CORPUSCULAR HGB CONC 31.4 g/dL (32.0-36.0); MEAN CORPUSCULAR VOLUME 92.7 fL (79-99); MONOCYTES # (AUTO) 0.6 K/uL (0.1-1.0); MONOCYTES % (AUTO) 10.3 % (3.0-13.0); NEUTROPHILS # (AUTO) 4.2 K/uL (1.8-7.7); NEUTROPHILS % (AUTO) 73.7 % (40.0-77.0); PLATELET COUNT (AUTO) 220 K/uL (130-400); RED BLOOD CELL COUNT(AUTO) 4.78 MIL/uL (4.00-5.50); RED CELL DISTRIBUTION WIDTH 15.9 % (11.0-15.5); WHITE BLOOD COUNT (AUTO) 5.8 K/uL (4.8-10.8)
[2024-05-21 09:32] LABS: CREATININE 1.2 mg/dL (0.5-1.0); MAGNESIUM 2.3 mg/dL (1.80-2.40); POTASSIUM 3.5 mmol/L (3.5-5.1)
--- NOTE | 2024-05-21 10:10 | CONS ---
[facility] CARDIAC ELECTROPHYSIOLOGY CONSULTATION Date Patient Seen: May 21, 2024 Time of Visit: 10:09 Reason for Consultation: Atrial fibrillation History of Present Illness: The patient is a 69-year-old woman known to me with a history of persistent atrial fibrillation, status post more than one cardioversion in the past, failed antiarrhythmic therapy. She underwent ablation for atrial fibrillation on 05/08/24. This was a pulmonary vein isolation. The posterior wall exhibited some heterogeneous voltage but this improved post PVI. Postoperatively she developed pleuritic chest pain and was treated with colchicine as this is beneficial in patients post AFib ablation with mild pericarditis. Multaq was continued post ablation. She then presented to the emergency room on 05/09 with chest pain, and was treated with colchicine. Troponins were elevated however this is very common in the setting AFib ablation with multiple radiofrequency lesions. She was in sinus rhythm during the admission. She now presents with atrial fibrillation and rapid ventricular response. The patient has multiple adverse effects from multiple medications. She also michele s a very negative outlook on her physical condition, much of this, I believe, is driven by her lack of a good support system from family or friends. She has been advised in the past that she most likely has sleep apnea and she would be worked up. She has also discontinued medications in the past, for example her post-ablation GI prophylaxis and has been inconsistent with her antiarrhythmic therapy. Past Medical History: see above Family History: non-contributory Social History: Denies smoking or alcohol abuse Patient lives alone. She states she has no family here in no friends. Review of Systems: Negative on a 13 point review Vital Signs (last 8hr) Date Time Temp Pulse Resp B/P (MAP) Pulse Ox O2 Delivery O2 Flow Rate FiO2 05/21/24 07:50 97.7 72 20 135/90 98 Room Air 05/21/24 07:40 102 21 N/A Room Air 21 05/21/24 07:36 101 20 05/21/24 06:40 130 128/91 05/21/24 06:29 98.6 130 22 128/91 97 Nasal Cannula 05/21/24 03:39 97.9 115 22 117/91 95 Room Air Laboratory: [ ] Hematology Labs: Test 05/21/24 09:14 05/20/24 16:07 Range/Units White Blood Count 5.8 4.8-10.8 K/uL Red Blood Count 4.78 4.00-5.50 MIL/uL Hemoglobin 13.9 12.0-16.0 g/dL Hematocrit 44.3 36-48 % Mean Corpuscular Volume 92.7 79-99 fL Mean Corpuscular Hemoglobin 29.1 27.0-33.0 pg Mean Corpuscular Hemoglobin Concent 31.4 L 32.0-36.0 g/dL Red Cell Distribution Width 15.9 H 11.0-15.5 % Platelet Count 220 130-400 K/uL Mean Platelet Volume 12.0 H 7.5-10.5 fL Immature Granulocyte % (Auto) 0.7 0-1 % Neutrophils (%) (Auto) 73.7 40.0-77.0 % Lymphocytes (%) (Auto) 12.3 L 21.0-51.0 % Monocytes (%) (Auto) 10.3 3.0-13.0 % Eosinophils (%) (Auto) 2.1 0.0-8.0 % Basophils (%) (Auto) 0.9 0.0-5.0 % Neutrophils # (Auto) 4.2 1.8-7.7 K/uL Lymphocytes # (Auto) 0.7 L 1.0-4.8 K/uL Monocytes # (Auto) 0.6 0.1-1.0 K/uL Eosinophils # (Auto) 0.12 0.00-0.70 K/uL Basophils # (Auto) 0.05 0.00-0.20 K/uL Absolute Immature Granulocyte (auto 0.04 0-1 K/uL Nucleated Red Blood Cells 0.0 0.0-0.19 % Erythrocyte Sedimentation Rate 28 0-30 MM/HR Chemistry Labs: Test 05/21/24 09:14 05/20/24 16:07 Range/Units Sodium Level 144 136-145 mmol/L Potassium Level 3.5 3.5-5.1 mmol/L Chloride Level 103 101-111 mmol/L Carbon Dioxide Level 38 H 21-32 mmol/L Blood Urea Nitrogen 11 7-18 mg/dL Creatinine 1.2 H 0.5-1.0 mg/dL Glomerular Filtration Rate Calc 49 >90 mL/min Random Glucose 96 70-105 mg/dL Total Calcium 8.6 8.5-10.1 mg/dL Magnesium Level 2.30 1.80-2.40 mg/dL Total Bilirubin 0.8 0.2-1.0 mg/dL Direct Bilirubin 0.2 0.0-0.3 mg/dL Aspartate Amino Transf (AST/SGOT) 25 10-37 U/L Alanine Aminotransferase (ALT/SGPT) 21 12-78 U/L Alkaline Phosphatase 53 50-136 U/L C-Reactive Protein, Quantitative 14.60 H 0.5-3.0 mg/L B-Type Natriuretic Peptide 268 H 0-100 pg/mL Total Protein 6.5 6.0-8.3 g/dL Albumin 2.8 L 3.5-5.0 g/dL Procalcitonin < 0.05 L 0.05-0.5 ng/mL Coagulation Labs: Test 05/20/24 16:07 Range/Units Prothrombin Time 13.7 H 9.6-11.6 SEC Prothromb Time International Ratio 1.25 H 0.85-1.15 Activated Partial Thromboplast Time 30.4 26.3-35.5 SEC Assessment: 1. Recurrent atrial fibrillation, occurring in the blanking period status post catheter ablation on 05/08/2024. 2. Highly suspected obstructive sleep apnea, refused workup in the past 3. Obesity 4. Difficult social situation Plan: 1. I reminded the patient that the occurrence of atrial fibrillation within the three-month blanking. Post ablation does not necessarily indicate failure as a significant amount of substrate modification occurs during this period of time. 2. I also reminded the patient that ablation of persistent atrial fibrillation carries a lower success rate then paroxysmal atrial fibrillation, particularly in the presence of obesity and probable sleep apnea. 3. We will proceed with cardioversion today 4. Post cardioversion, if successful, the patient can be discharged home from a cardiac standpoint to follow up with me in the office. 5. Continue all cardiac medications. 6. Protonix and sucralfate were used for esophageal prophylaxis post AFib ablation in are to be continued for two weeks postprocedure. The patient only took them for two days. These can be discontinued. 7. I reiterated the need for weight loss and workup/treatment for obstructive sleep apnea. ROSANNA SANCHEZ MD May 21, 2024 10:10
--- NOTE | 2024-05-21 10:30 | NUR ---
CARDIOVERSION COMPLETED- VS STGABLE. AIRWAY PATENT. PT VERBAL AND APPROPRIATE.
[2024-05-21] MEDS ORDERED: proPOFol 10 MG/ML 20ML VIAL IV ONE (10:31)
[2024-05-21] MEDS ORDERED: phenylEPHRINE HCL 10 MG/ML 1ML VIAL IV ONE (10:31)
--- NOTE | 2024-05-21 10:37 | PRN ---
Procedure Note INDICATION FOR PROCEDURE: Persistent atrial fibrillation PROCEDURE: Cardioversion DATE OF PROCEDURE: 05/21/2024 LEAD PERFORMANCE SUPPORT ANALYST: Dr. Gt Sanchez PROCEDURE NOTE: The patient was prepared in her room in a fasting state. General anesthesia was provided by the anesthesia service. A single synchronized shock of 200 joules was delivered resulting in sinus rhythm in the 60s. The patient tolerated the procedure well. IMPRESSION: Persistent atrial fibrillation status post successful cardioversion GT SANCHEZ MD May 21, 2024 10:37
--- NOTE | 2024-05-21 11:38 | EKG ---
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 : [id number] Requested By: ROSANNA SANCHEZ Order Number: [id number] Reading MD: Leonel Harris Measurements Intervals [place] Rate: 62 P: 55 GA: 146 QRS: 8 QRSD: 66 T: 7 QT: 508 QTc: 515 Interpretive Statements Sinus rhythm with blocked premature atrial complexes with premature supraventricular complexes and with occasional premature ventricular complexes Nonspecific ST and T wave abnormality Prolonged QT Compared to ECG 05/20/2024 15:50:46 Atrial premature complex(es) now present Ventricular premature complex(es) now present Atrial fibrillation no longer present ST (T wave) deviation still present Electronically Signed On 05-22-2024 10:27:17 FINANCIAL ANALYSIS ADVISOR by Leonel Harris Please click the below link to view image of tracing.
--- NOTE | 2024-05-21 12:00 | NUR ---
REMAINS IN NORMAL SINUS RHYTHM RATE OF 70
--- NOTE | 2024-05-21 14:00 | NUR ---
DR BALL NOTIFIED THAT PT CLEARED BY CARDIO FOR DISCHARGE
--- NOTE | 2024-05-21 15:14 | NUR ---
DCP Pt awake, alert, oriented x3 lives alone. Has her son Melvin Grimm [phone] to help if needed, pt does not have medical equipment, and is independent. Anticipates discharge for home. Addendum: 05/21/24 at 1523 by FAY RIVERA RN CM Amended: Links added.
--- NOTE | 2024-05-21 15:20 | NUR ---
DISCHARGED- PRINTED AND VERBAL DISCHARGE INSTRUCTIONS GIVEN TO PT VERBALIZES UNDERSTANDING. NO ACUTE DISTRESS NOTED. IV CATHETER REMOVED FROM RT ARM INTACT. TO CAR VIA WHEELCHAIR
--- NOTE | 2024-05-21 15:50 | DS ---
Discharge Summary Hospital Course Summary: 69-year-old female with history of persistent atrial fibrillation, chronic diastolic heart failure, hypertension, obesity, history of anxiety and depression who recently underwent pulmonary vein isolation with ablation on 05/08/2024. Postprocedurally, next day, patient presented to the ER with chest pain with radiation to the jaw. She was on further workup, found to have myopericarditis with elevated troponin. She was seen by Cardiology and was subsequently discharged on 05/10/2024 with outpatient therapy with colchicine for management of pericarditis. Patient was also discharged on Multaq 400 mg twice a day, metoprolol tartrate 25 mg b.i.d., and Cardizem 240 mg daily. Patient states that post discharge over the last several days, she has been having palpitations and has noticed that atrial fibrillation has recurred. She has noticed increased swelling of the lower extremity and has been having productive cough with dyspnea on exertion. She denies any active chest pain or chest pressure. Denies any fevers, chills or pleurisy. She has noticed that heart rate at home has been trending in the 100s to 130s over the last several days. Reports previously having multiple cardioversions previously. Patient will be admitted for further management of persistent atrial fibrillation with RVR. Cardiology was consulted and recommended cardioversion the following day. She was taken for cardioversion which was successful. She tolerated the p rocedure well, see the procedure note for more details. Post procedure she was kept for observation before being cleared for discharge by electrophysiology. She will be discharged back home. . Early Childhood Teacher Assistant(s): Cardiology Electrophysiology Procedure(s): CHEST 1VW HISTORY: Shortness of breath COMPARISON: 05/09/2024 FINDINGS: A frontal projection of the chest was obtained. Prominent interstitial markings are seen with possible superimposed infiltrates. The heart is normal in size. Degenerative changes are seen. No evidence of aortic calcification is seen. IMPRESSION: 1. Prominent interstitial markings are seen with possible superimposed infiltrates. CT ANGIOGRAM OF THE CHEST WITHOUT AND WITH CONTRAST. CT RECONSTRUCTIONS INDICATION: Persistent atrial fibrillation, acute diastolic heart failure. TECHNIQUE: Routine axial images using 3 mm slice thickness were acquired from the lung apices to the bases before and after the intravenous administration of 100 mL of Omnipaque 350 contrast material using the pulmonary embolism protocol. Maximum Intensity Projection imaging in the sagittal and coronal planes were also provided. CT was performed with one or more of the following dose reduction techniques: Automated exposure control, adjustment of the mA and/or kV according to patient size, or use of iterative reconstruction technique. COMPARISON: None FINDINGS: The contrast bolus is of good quality for diagnosis of pulmonary embolism. The heart size is within normal limits without pericardial effusion. Reflux of contrast material into the hepatic veins. The main pulmonary arteries, segmental branches, and visualized subsegmental pulmonary arteries appear normal without intraluminal filling defects. Pulmonary trunk is not enlarged. No evidence for thoracic aortic aneurysm or dissection. The origins of the great vessels and thoracic aorta appear normal. Trachea appears normal. Generalized mild peribronchial thickening. No pleural effusion, pneumothorax, abnormal opacity or consolidation, pulmonary nodule, or mass identified. No axillary, hilar, or mediastinal lymphadenopathy detected. Small simple splenic cyst. Visible osseous structures are intact. IMPRESSION: Findings suggesting an element of right heart failure, without evidence for pulmonary embolism, pericardial effusion, cardiomegaly, or pulmonary vascular congestion at this juncture. Mild reactive airway disease without pneumonia. Assessment/Plan: Persistent atrial fibrillation with RVR, s/p cardioversion 05/21/24 POA Acute diastolic heart failure exacerbation, ruled out POA Recent history of myopericarditis, 05/10/2024, POA Recent history of AFib ablation on 05/08/2024, POA CKD stage 3, POA History of multiple cardioversions previously for atrial fibrillation, POA Obesity, POA History of anxiety, POA History of chronic anticoagulation with Eliquis, POA Acute bronchitis, POA History of penicillin, amiodarone, clarithromycin, erythromycin allergy, POA History of lisinopril, propranolol allergy, POA Prolonged QTC, POA Discharge Instructions: Follow up with PCP in 3-7 days 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 with 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 in 1-2 weeks Home Medications: Active Scripts Colchicine (Colchicine) 0.6 Mg Capsule, 1 CAP PO BID for 10 Days, #20 CAP 0 Refills Prov:ROBBY POTTER MD 05/10/24 Reported Medications Semaglutide (Ozempic) 1 Mg/0.75 Ml (4 Mg/3 Ml) Pen.injctr, 1 MG SQ QWEEK for 30 Days, #3 ML 0 Refills 05/09/24 Metoprolol Tartrate (Metoprolol Tartrate) 25 Mg Tablet, 1 TAB PO BID for 30 Days, #60 TAB 0 Refills 05/09/24 Diltiazem HCl (Diltiazem ER) 240 Mg Cap.er.deg, 1 CAP PO DAILY for 30 Days, #30 CAP 0 Refills 05/09/24 Apixaban (Eliquis) 5 Mg Tablet, 1 TAB PO BID for 30 Days, #60 TAB 0 Refills 05/09/24 Dronedarone Hydrochloride (Multaq) 400 Mg Tablet, 1 TAB PO BID for 30 Days, #60 TAB 0 Refills 05/09/24 Discontinued Scripts Sucralfate (Carafate) 1 Gram Tablet, 1 TAB PO QID for 14 Days, #56 TAB 0 Refills must dissolve in water. do not crush please Prov:ROBBY POTTER MD 05/10/24 Pantoprazole Sodium (Protonix) 40 Mg Ectab, 1 TAB PO DAILY for 14 Days, #14 TAB 0 Refills Prov:ROBBY POTTER MD 05/10/24 Continued Medications: Apixaban (Eliquis) 5 Mg Tablet 1 TAB PO BID for 30 Days, #60 TAB 0 Refills Colchicine (Colchicine) 0.6 Mg Capsule 1 CAP PO BID for 10 Days, #20 CAP 0 Refills Diltiazem HCl (Diltiazem ER) 240 Mg Cap.er.deg 1 CAP PO DAILY for 30 Days, #30 CAP 0 Refills Dronedarone Hydrochloride (Multaq) 400 Mg Tablet 1 TAB PO BID for 30 Days, #60 TAB 0 Refills Metoprolol Tartrate (Metoprolol Tartrate) 25 Mg Tablet 1 TAB PO BID for 30 Days, #60 TAB 0 Refills Semaglutide (Ozempic) 1 Mg/0.75 Ml (4 Mg/3 Ml) Pen.injctr 1 MG SQ QWEEK for 30 Days, #3 ML 0 Refills Time spent arranging discharge: 31-60 minutes YUDITH BALL MD May 21, 2024 15:50
[2024-05-24] MEDS ORDERED: CEPH500B PO ×2 (15:33)
== END 2024-05-21 15:29 | disposition home or self-care (01) ==
LOC: EDH 15:02 → EDHIP 15:03 → INTOOBSV 15:03 → UNDOADMIN 15:24 → EDHIP 15:24 → 2DH 21:44
PROVIDERS: ADMIT Internal Medicine; ATTEND Internal Medicine
DX: I48.0 Paroxysmal atrial fibrillation (principal); Z20.822 Contact with and (suspected) exposure to COVID-19; I13.0 Hypertensive heart and chronic kidney disease with heart failure and stage 1 through stage 4 chronic kidney disease, or unspecified chronic kidney disease; I50.33 Acute on chronic diastolic (congestive) heart failure; N18.30 Chronic kidney disease, stage 3 unspecified; J20.9 Acute bronchitis, unspecified; E66.9 Obesity, unspecified; M79.89 Other specified soft tissue disorders; R00.2 Palpitations; I45.81 Long QT syndrome; F41.9 Anxiety disorder, unspecified; I31.9 Disease of pericardium, unspecified; R60.0 Localized edema; F32.A Depression, unspecified; Z88.0 Allergy status to penicillin; Z88.5 Allergy status to narcotic agent; Z88.1 Allergy status to other antibiotic agents; Z79.01 Long term (current) use of anticoagulants; Z68.41 Body mass index [BMI] 40.0-44.9, adult; Z79.899 Other long term (current) drug therapy
CPT/HCPCS: 96365; 96375 ×2; 80076; 83735 ×2; 80048 ×2; 83880; 85025 ×2; 85610; 85730; 85651; 87071; 87086; 87186; 87205; 87804 ×2; 86140; 36415 ×2; 87635; 71045; 71270; 93005 ×2; 94664; 84145; 96376; 92960; 94640; J3475; J1940 ×2; Q9967; G0378 ×3; G0379; J3490; J2704; J2371